=== PATIENT | male | born 1960 | race Caucasian/White ===

== ENCOUNTER 2017-11-24 19:18 | Emergency (ER) | payer MEDICARE ==
[~2017-11-24] VITALS: Ht 182.9 cm; Wt 59.0 kg
[~2017-11-24 19:18] MED LIST: ADULT LOW DOSE81 MG PO; ALPRAZOLAM 0.50.5 M1 PO; ASPIR 8181 MG PO; BACTRIM DS TAB1 EACH PO; CEFUROXIME250 MG PO; CEFUROXIME500 MG PO; MUCINEX600 MG PO; NORCO 5-325 TA1 EACH PO; PENICILLIN V P500 MG PO; VENTOLIN HFA 1818 GM INH; ZOCOR20 MG PO; ZYVOX600 MG PO
[2017-11-24 19:52] LABS: ABSOLUTE EOSINOPHILS 0.2 thou/uL (0.0-0.7); ABSOLUTE LYMPHOCYTES 1.7 thou/uL (0.8-5.3); ABSOLUTE MONOCYTES 0.7 thou/uL (0.0-1.2); ABSOLUTE NEUTROPHILS 6.7 thou/uL (1.6-8.1); BASOPHILS 0.5 %; EOSINOPHILS 1.9 %; HEMATOCRIT 44.3 % (42.0-52.0); LYMPHOCYTES 18.5 %; MCH 31.2 pg (26.0-34.0); MCHC 33.8 g/dL (28.0-37.0); MCV 92.5 fL (80.0-100.0); MONOCYTES 7.2 %; MPV 9.1 fl. (7.2-11.1); NUCLEATED RBCS 0 /100WBC; PLATELET COUNT* 261 thou/uL (150-400); POLYS 71.9 %; RBC 4.79 mil/uL (4.50-6.00); RDW-CV 13.4 % (10.5-14.5); WBC 9.3 thou/uL (4.0-11.0)
[2017-11-24 19:56] LABS: CALCIUM 8.4 mg/dL (8.5-10.1); CREATININE 0.7 mg/dL (0.6-1.3); POTASSIUM 3.5 mmol/L (3.5-5.1)
[2017-11-24 20:01] LABS: ALBUMIN 3.9 g/dL (3.4-5.0); TOTAL BILIRUBIN 0.3 mg/dL (<0.1-1.0)
[2017-11-24 20:02] LABS: URINE BILIRUBIN NEGATIVE (Negative); URINE BLOOD 3+ (Negative); URINE CLARITY CLEAR; URINE COLOR YELLOW; URINE GLUCOSE-RANDOM NEGATIVE (Negative); URINE KETONES NEGATIVE (Negative); URINE PROTEIN TRACE (Negative); URINE UROBILINOGEN 0.2 E.U./dl (0.2-1.0)
[2017-11-24 20:10] LABS: URINE LEUKOCYTES-REFLEX 3+ (Negative); URINE NITRITE-REFLEX POSITIVE (Negative)
[2017-11-24 20:13] LABS: SQUAMOUS 0-3 Few /LPF (0-3)
[2017-11-24 20:14] LABS: CASTS None Seen /LPF (None Seen); CRYSTALS None Seen /LPF (None Seen); URINE WBC-REFLEX >25 Many /HPF (0-5)
[2017-11-24] MEDS ORDERED: AUGMENTIN 875-1 EACH PO (20:39)
[2017-11-24] MEDS ORDERED: ZOFRAN ODT4 MG PO (20:39)
[2017-11-24] MEDS ORDERED: ACETAMINOPHEN-1 EAC1 PO (20:39)
[2017-11-24 21:39] VITALS: BP 148/81
== END 2017-11-24 21:41 | disposition home or self-care (01) ==
LOC: M.ERS 19:18
PROVIDERS: Emergency Medicine
DX: N39.0 Urinary tract infection, site not specified (principal); J44.9 Chronic obstructive pulmonary disease, unspecified; F17.210 Nicotine dependence, cigarettes, uncomplicated

== ENCOUNTER 2018-04-03 16:17 | Emergency (ER) | payer MEDICARE ==
[~2018-04-03] VITALS: Ht 182.9 cm; Wt 62.6 kg
[~2018-04-03 16:17] MED LIST changes: +ACETAMINOPHEN-1 EAC1 PO; +AUGMENTIN 875-1 EACH PO; +ZOFRAN ODT4 MG PO
[2018-04-03 17:36] LABS: URINE BILIRUBIN NEGATIVE (Negative); URINE BLOOD 3+ (Negative); URINE COLOR YELLOW; URINE GLUCOSE-RANDOM NEGATIVE (Negative); URINE KETONES NEGATIVE (Negative); URINE PROTEIN 2+ (Negative); URINE SPECIFIC GRAVITY >= 1.030 (1.005-1.030)
[2018-04-03 17:37] LABS: URINE CLARITY CLOUDY; URINE LEUKOCYTES-REFLEX 2+ (Negative); URINE NITRITE-REFLEX POSITIVE (Negative)
[2018-04-03 17:45] LABS: SQUAMOUS NONE SEEN /LPF (0-3)
[2018-04-03 17:46] LABS: BACTERIA-REFLEX >30 Many /HPF (None Seen); CASTS None Seen /LPF (None Seen); CRYSTALS None Seen /LPF (None Seen); URINE RBC >20 Many /HPF (0-2); URINE WBC-REFLEX >25 Many /HPF (0-5)
[2018-04-03] MEDS ORDERED: AUGMENTIN 875-1 EACH PO (17:52)
[2018-04-03] MEDS ORDERED: ACETAMINOPHEN-1 EAC1 PO (18:01)
[2018-04-03] MEDS ORDERED: PYRIDIUM200 M2 PO (18:02)
[2018-04-03 18:04] VITALS: BP 136/58
== END 2018-04-03 18:06 | disposition home or self-care (01) ==
LOC: M.ERS 16:17
PROVIDERS: Nurse Practitioner Family
DX: N39.0 Urinary tract infection, site not specified (principal); J44.9 Chronic obstructive pulmonary disease, unspecified; F17.210 Nicotine dependence, cigarettes, uncomplicated

== ENCOUNTER 2018-10-05 21:30 | Emergency (ER) | payer MEDICARE ==
[~2018-10-05] VITALS: Ht 182.9 cm; Wt 63.5 kg
[~2018-10-05 21:30] MED LIST changes: +PYRIDIUM200 M2 PO
[2018-10-05 22:00] LABS: URINE BILIRUBIN NEGATIVE (Negative); URINE BLOOD TRACE (Negative); URINE CLARITY CLEAR; URINE COLOR YELLOW; URINE GLUCOSE-RANDOM NEGATIVE (Negative); URINE KETONES NEGATIVE (Negative); URINE PROTEIN 1+ (Negative)
[2018-10-05 22:02] LABS: ABSOLUTE EOSINOPHILS 0.1 thou/uL (0.0-0.7); ABSOLUTE MONOCYTES 0.6 thou/uL (0.0-1.2); ABSOLUTE NEUTROPHILS 8.6 thou/uL (1.6-8.1); BASOPHILS 0.4 %; EOSINOPHILS 0.7 %; HEMATOCRIT 38.7 % (42.0-52.0); HEMOGLOBIN 13.4 gm/dL (14.0-18.0); LYMPHOCYTES 9.8 %; MCH 31.2 pg (26.0-34.0); MCHC 34.5 g/dL (28.0-37.0); MCV 90.5 fL (80.0-100.0); NUCLEATED RBCS 0 /100WBC; PLATELET COUNT* 206 thou/uL (150-400); POLYS 83.1 %; RBC 4.28 mil/uL (4.50-6.00); RDW-CV 13.5 % (10.5-14.5); WBC 10.3 thou/uL (4.0-11.0)
[2018-10-05 22:06] LABS: CASTS None Seen /LPF (None Seen); CRYSTALS None Seen /LPF (None Seen); SQUAMOUS 0-3 Few /LPF (0-3); URINE LEUKOCYTES-REFLEX 2+ (Negative); URINE NITRITE-REFLEX POSITIVE (Negative); URINE RBC 0-2 Rare /HPF (0-2); URINE WBC-REFLEX 6-15 Few /HPF (0-5)
[2018-10-05 22:13] LABS: CALCIUM 9.3 mg/dL (8.5-10.1); CREATININE 0.9 mg/dL (0.6-1.3); POTASSIUM 3.8 mmol/L (3.5-5.1)
[2018-10-05 22:17] LABS: ALBUMIN 3.7 g/dL (3.4-5.0); TOTAL BILIRUBIN 0.3 mg/dL (<0.1-1.0); TOTAL PROTEIN 6.5 g/dL (6.4-8.2)
[2018-10-05] MEDS ORDERED: CIPROFLOXACIN500 M1 PO (22:56)
[2018-10-05 23:09] VITALS: BP 111/52
== END 2018-10-05 23:11 | disposition home or self-care (01) ==
LOC: M.ERS 21:30
PROVIDERS: Family Medicine
DX: S00.83XA Contusion of other part of head, initial encounter (principal); N39.0 Urinary tract infection, site not specified; F17.210 Nicotine dependence, cigarettes, uncomplicated; J44.9 Chronic obstructive pulmonary disease, unspecified; W11.XXXA Fall on and from ladder, initial encounter; Y92.89 Other specified places as the place of occurrence of the external cause; Y93.89 Activity, other specified; Y99.8 Other external cause status

== ENCOUNTER 2020-01-18 14:52 | Emergency (ER) | payer MEDICARE ==
[~2020-01-18] VITALS: Ht 185.4 cm; Wt 63.5 kg
[~2020-01-18 14:52] MED LIST changes: +CIPROFLOXACIN500 M1 PO
[2020-01-18 15:32] LABS: URINE BILIRUBIN NEGATIVE (Negative); URINE BLOOD 3+ (Negative); URINE CLARITY CLEAR; URINE COLOR YELLOW; URINE GLUCOSE-RANDOM NEGATIVE (Negative); URINE KETONES NEGATIVE (Negative); URINE LEUKOCYTES-REFLEX 1+ (Negative); URINE PROTEIN 2+ (Negative); URINE SPECIFIC GRAVITY 1.025 (1.005-1.030)
[2020-01-18 15:36] LABS: URINE NITRITE-REFLEX POSITIVE (Negative)
[2020-01-18 15:42] LABS: BACTERIA-REFLEX >30 Many /HPF (None Seen); CASTS None Seen /LPF (None Seen); CRYSTALS None Seen /LPF (None Seen); SQUAMOUS 0-3 Few /LPF (0-3); URINE RBC 3-10 Few /HPF (0-2); URINE WBC-REFLEX >25 Many /HPF (0-5)
[2020-01-18 16:02] LABS: ABSOLUTE BASOPHILS 0.1 thou/uL (0.0-0.2); ABSOLUTE EOSINOPHILS 0.2 thou/uL (0.0-0.7); ABSOLUTE LYMPHOCYTES 1.2 thou/uL (0.8-5.3); ABSOLUTE MONOCYTES 0.6 thou/uL (0.0-1.2); ABSOLUTE NEUTROPHILS 8.6 thou/uL (1.6-8.1); BASOPHILS 0.6 %; EOSINOPHILS 1.4 %; HEMATOCRIT 43.3 % (42.0-52.0); HEMOGLOBIN 15.1 gm/dL (14.0-18.0); LYMPHOCYTES 10.9 %; MCH 32.3 pg (26.0-34.0); MCHC 34.8 g/dL (28.0-37.0); MCV 92.9 fL (80.0-100.0); MONOCYTES 5.7 %; MPV 8.9 fl. (7.2-11.1); NUCLEATED RBCS 0 /100WBC; PLATELET COUNT* 221 thou/uL (150-400); POLYS 81.4 %; RBC 4.66 mil/uL (4.50-6.00); RDW-CV 13.3 % (10.5-14.5); WBC 10.6 thou/uL (4.0-11.0)
[2020-01-18 16:10] LABS: POTASSIUM 3.9 mmol/L (3.5-5.1)
[2020-01-18 16:19] LABS: ALBUMIN 3.9 g/dL (3.4-5.0); TOTAL BILIRUBIN 0.3 mg/dL (<0.1-1.0)
[2020-01-18] MEDS ORDERED: NORCO 5-325 TA1 EAC2 PO (17:34)
[2020-01-18] MEDS ORDERED: IBUPROFEN 800800 M1 PO (17:34)
[2020-01-18] MEDS ORDERED: CIPRO500 M1 PO (17:34)
[2020-01-18 17:55] VITALS: BP 120/70
--- NOTE | 2020-01-19 14:00 | EKG ---
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: Ronak Camargo : 1960 Requested By: Suma Zamudio Order Number: [id number] MD: Max Cardona Measurements Intervals [place] Rate: 68 P: 74 IN: 142 QRS: 89 QRSD: 96 T: 61 QT: 392 QTc: 417 Interpretive Statements Sinus rhythm Borderline right axis deviation Borderline ST elevation, anterior leads, probably normal variant Baseline wander in lead(s) V2 Compared to ECG 03/02/2017 09:09:39 ST (T wave) deviation now present Electronically Signed On 01-19-2020 14:00:29 CDT by Max Cardona [email or web address] <ELECTRONICALLY SIGNED> By: Max Cardona MD, FACC 01/19/20 1400 1557 1557 Max Cardona MD, FACC /EPI
== END 2020-01-18 17:55 | disposition home or self-care (01) ==
LOC: M.ERS 14:52
PROVIDERS: Emergency Medicine Emergency Medical Services; Nurse Practitioner Family
DX: N39.0 Urinary tract infection, site not specified (principal); R06.00 Dyspnea, unspecified; R07.89 Other chest pain; J44.9 Chronic obstructive pulmonary disease, unspecified; F17.210 Nicotine dependence, cigarettes, uncomplicated

== ENCOUNTER 2020-03-24 16:07 | Inpatient (IN) | payer MEDICARE ==
[~2020-03-24] VITALS: Ht 185.4 cm; Wt 62.6 kg
[~2020-03-24 16:07] MED LIST changes: +CIPRO500 M1 PO; +IBUPROFEN 800800 M1 PO; +NORCO 5-325 TA1 EAC2 PO
[2020-03-24 16:14] VITALS: BP 129/78
[2020-03-24 16:32] LABS: URINE BILIRUBIN NEGATIVE (Negative); URINE BLOOD NEGATIVE (Negative); URINE CLARITY SL CLOUDY; URINE COLOR YELLOW; URINE GLUCOSE-RANDOM NEGATIVE (Negative); URINE KETONES NEGATIVE (Negative); URINE LEUKOCYTES-REFLEX 2+ (Negative); URINE NITRITE-REFLEX POSITIVE (Negative); URINE PROTEIN 1+ (Negative); URINE SPECIFIC GRAVITY 1.025 (1.005-1.030); URINE UROBILINOGEN 0.2 E.U./dl (0.2-1.0)
--- NOTE | 2020-03-24 16:32 | NUR ---
THIS RN WALKED IN TO PT'S ROOM TO OBTAIN URINE SAMPLE FROM PT. RN FOUND PT ON FLOOR IN THE POSITION. PT WAS SHAKING BUT WAS ALERT. PT WAS HELPED BACK TO BED WITH 2 RN ASSISTANCE. 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 PT REPORTS NOT KNOWING HOW HE ENDED UP LAYING DOWN ON FLOOR BUT DOES ENDORSE MILD DIZZINESS. PT UNSURE IF HIT HEAD BUT DID NOT LOSE CONSCIOUSNESS. PT DID NOT APPEAR TO HAVE HIT HEAD. RELL NURSE PRACTITIONER, PT'S PROVIDER, NOTIFIED IMMEDIATELY OF INCIDENT AND CAME TO EVALUATE PT.
[2020-03-24 16:39] LABS: BACTERIA-REFLEX >30 Many /HPF (None Seen); MUCUS 0-3 Light strn/LPF (None Seen); SQUAMOUS 0-3 Few /LPF (0-3)
[2020-03-24 16:40] LABS: CASTS None Seen /LPF (None Seen); CRYSTALS None Seen /LPF (None Seen); URINE RBC None Seen /HPF (0-2)
[2020-03-24 17:04] LABS: ABSOLUTE EOSINOPHILS 0.1 thou/uL (0.0-0.7); ABSOLUTE LYMPHOCYTES 0.9 thou/uL (0.8-5.3); ABSOLUTE MONOCYTES 0.6 thou/uL (0.0-1.2); ABSOLUTE NEUTROPHILS 8.3 thou/uL (1.6-8.1); BASOPHILS 0.4 %; EOSINOPHILS 0.5 %; HEMATOCRIT 43.3 % (42.0-52.0); HEMOGLOBIN 14.7 gm/dL (14.0-18.0); LYMPHOCYTES 9.4 %; MCH 31.1 pg (26.0-34.0); MCHC 33.9 g/dL (28.0-37.0); MCV 91.7 fL (80.0-100.0); MONOCYTES 6.2 %; MPV 9.2 fl. (7.2-11.1); NUCLEATED RBCS 0 /100WBC; PLATELET COUNT* 209 thou/uL (150-400); POLYS 83.5 %; RBC 4.72 mil/uL (4.50-6.00); WBC 9.9 thou/uL (4.0-11.0)
[2020-03-24 17:14] LABS: AMP/METHAMP Negative (Negative); BARBITURATES Negative (Negative); BENZODIAZEPINES Negative (Negative); COCAINE Negative (Negative); METHADONE Negative (Negative); OPIATES POSITIVE (Negative); PCP Negative (Negative); THC POSITIVE (Negative)
[2020-03-24 17:14] LABS: POTASSIUM 3.7 mmol/L (3.5-5.1)
[2020-03-24 17:19] LABS: TOTAL BILIRUBIN 0.4 mg/dL (<0.1-1.0); TOTAL PROTEIN 7.2 g/dL (6.4-8.2)
[2020-03-24 17:24] LABS: ACETAMINOPHEN < 2 ug/mL (10-30); ALCOHOL < 10 mg/dL (<10)
[2020-03-24 22:04] VITALS: BP 126/67
[2020-03-24 23:30] VITALS: BP 137/67
[2020-03-25] VITALS: BP 89/40
[2020-03-25 07:30] VITALS: BP 113/56
[2020-03-25 09:39] LABS: CALCIUM 8.1 mg/dL (8.5-10.1); CREATININE 0.8 mg/dL (0.6-1.3)
[2020-03-25 09:43] LABS: ALBUMIN 3.4 g/dL (3.4-5.0); MAGNESIUM 1.8 mg/dL (1.8-2.4); PHOSPHORUS* 2.7 mg/dL (2.5-4.9); TOTAL BILIRUBIN 0.4 mg/dL (<0.1-1.0); TOTAL PROTEIN 6.1 g/dL (6.4-8.2)
--- NOTE | 2020-03-25 11:19 | NUR ---
CM SPOKE TO THE PT TO DISCUSS HIS HOME SITUATION, DISCHARGE PLANNING, AND TO INFORM OF THE ROLE OF CM. PT A&O, INDEPNDENT WITH ADL'S AND DRIVES. PT RESIDES AT HOME WITH DTR AND SHE ASSIST HIM WITH HIS CATH CARE NEEDED HE INFORMS THAT 'SHE IS A MED TECH'. PT USES 0 DME. PT HAS 0 HX OF HH OR SNF. CM WILL REMAIN AVAILABLE TO ASSIST WITH D/C PLANNING NEEDED.
[2020-03-25 12:00] VITALS: BP 125/63
--- NOTE | 2020-03-25 12:24 | NUR ---
Nutrition: Pt admitted with syncope, UTI. Catheter for recurrent UTIs. BMI 18.2. Pt stated he used to weigh 160# in adulthood, but lost wt when he got his catheter. He weighs in the 130s now. He stated he had been eating fine MOVIE EXTRA. REgular diet. BG 120, alb 3.4. He has had Ensure before and he agreed to 2 a day for wt maintenance - RD will order. Mild nutrition risk. GOALS: >75% intake of meals/supplements, no wt loss from 135#.
[2020-03-25 16:00] VITALS: BP 113/73
--- NOTE | 2020-03-25 17:54 | EKG ---
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
[2020-03-25 19:30] VITALS: BP 118/67
[2020-03-26 00:28] VITALS: BP 134/67
[2020-03-26 04:40] VITALS: BP 133/55
[2020-03-26 04:40] LABS: HEMATOCRIT 38.5 % (42.0-52.0); HEMOGLOBIN 13.1 gm/dL (14.0-18.0); MCH 31.2 pg (26.0-34.0); MCV 91.8 fL (80.0-100.0); MPV 9.6 fl. (7.2-11.1); RBC 4.19 mil/uL (4.50-6.00); WBC 5.7 thou/uL (4.0-11.0)
[2020-03-26 05:11] LABS: CALCIUM 7.9 mg/dL (8.5-10.1); CREATININE 0.9 mg/dL (0.6-1.3); MAGNESIUM 1.9 mg/dL (1.8-2.4); POTASSIUM 3.9 mmol/L (3.5-5.1)
[2020-03-26 07:22] VITALS: BP 116/62
[2020-03-26 11:06] VITALS: BP 112/54; BP 12/54
--- NOTE | 2020-03-26 11:13 | NUR ---
CM INFORMED DURING PRIME ROUNDING OF THE PLAN OF CARE FOR THE PT INCLUDING PLAN FOR PT TO CONTINUE I.V. ABT'S, PENDING LABS, AND PLAN TO POSSIBILY D/C PT HOME TOMORROW. NO D/C PLANNING NEEDS ANTICIPATED. CM WILL REMAIN AVAILABLE TO ASSIST AND FOLLOW.
[2020-03-26 16:00] VITALS: BP 117/62
[2020-03-27 00:22] VITALS: BP 113/37
[2020-03-27 04:35] VITALS: BP 116/66
[2020-03-27 05:38] LABS: HEMATOCRIT 39.2 % (42.0-52.0); HEMOGLOBIN 13.5 gm/dL (14.0-18.0); MCH 31.5 pg (26.0-34.0); MCHC 34.5 g/dL (28.0-37.0); MCV 91.2 fL (80.0-100.0); MPV 9.1 fl. (7.2-11.1); RBC 4.3 mil/uL (4.50-6.00); RDW-CV 13.1 % (10.5-14.5); WBC 6.1 thou/uL (4.0-11.0)
[2020-03-27 05:42] LABS: CALCIUM 8.5 mg/dL (8.5-10.1); CREATININE 0.9 mg/dL (0.6-1.3); MAGNESIUM 1.8 mg/dL (1.8-2.4); POTASSIUM 3.6 mmol/L (3.5-5.1)
[2020-03-27 08:04] VITALS: BP 111/61
--- NOTE | 2020-03-27 09:07 | NUR ---
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, TRACING SR- UPON ASSESSMENT PT NOTED TO BE RESTING IN BED IN BED- PT A&O X4- CONT OF BOWEL, SUPRAPUBIC CATH IN PLACE R/T NEUROGENIC BLADDER, DD CLEAR YELLOW URINE- UP AD-RODRIGUEZ IN ROOM STEADY GAIT NOTED- DIMINISHED LUNG SOUNDS, NON-PRODUCTIVE COUGH REPORTED- VSS, O2 SAT 94% ON RA- ABD SOFT/ROUND/NON-TENDER, BS X4 QUADS- LAST BM REPORTED 03/26/20- IV NOTED TO LEFT AC INTACT AND SL, IV ABT GIVEN THIS AM PRESCRIBED- GOOD PO INTAKE NOTED THIS AM WITH BREAKFAST- PT REPORTS KIDNEY PAIN TO BE IMPROVED THIS AM- CALL LIGHT AND PESONAL BELONGINGS WITH IN REACH- PT MAKES NEEDS KNOWN- ALL NEEDS MET AT THIS TIME-WCTM
[2020-03-27] MEDS ORDERED: AMOX TR-K CLV1 EAC3 PO (09:39)
[2020-03-27] MEDS ORDERED: LACTOBACILLUS1 EACH PO (09:39)
[2020-03-27] MEDS ORDERED: PHENAZOPYRIDIN100 M1 PO (09:39)
[2020-03-27] MEDS ORDERED: ACETAMINOPHEN-1 EACH PO (09:45)
[2020-03-27 11:24] VITALS: BP 111/61
[2020-03-27 11:44] VITALS: BP 111/61
== END 2020-03-27 11:43 | disposition home or self-care (01) | DRG 698 ==
LOC: M.ERS 16:07 → M.TBA-ER 19:21 → M.2W 19:21
PROVIDERS: Nurse Practitioner Family; ADMIT Internal Medicine; ATTEND Internal Medicine
DX: T83.518A Infection and inflammatory reaction due to other urinary catheter, initial encounter (principal); A41.81 Sepsis due to Enterococcus; G92 Toxic encephalopathy; N30.00 Acute cystitis without hematuria; B95.2 Enterococcus as the cause of diseases classified elsewhere; N31.2 Flaccid neuropathic bladder, not elsewhere classified; I95.9 Hypotension, unspecified; Y83.8 Other surgical procedures as the cause of abnormal reaction of the patient, or of later complication, without mention of misadventure at the time of the procedure; E86.9 Volume depletion, unspecified; J44.9 Chronic obstructive pulmonary disease, unspecified; F17.210 Nicotine dependence, cigarettes, uncomplicated; Z20.828 Contact with and (suspected) exposure to other viral communicable diseases; Y92.89 Other specified places as the place of occurrence of the external cause; Z79.899 Other long term (current) drug therapy

== ENCOUNTER 2020-09-19 17:15 | Emergency (ER) | payer MEDICARE ==
[~2020-09-19] VITALS: Ht 185.4 cm; Wt 63.5 kg
[~2020-09-19 17:15] MED LIST changes: +ACETAMINOPHEN-1 EACH PO; +AMOX TR-K CLV1 EAC3 PO; +LACTOBACILLUS1 EACH PO; +PHENAZOPYRIDIN100 M1 PO
[2020-09-19 17:46] LABS: ABSOLUTE BASOPHILS 0.1 thou/uL (0.0-0.2); ABSOLUTE EOSINOPHILS 0.1 thou/uL (0.0-0.7); ABSOLUTE LYMPHOCYTES 1.5 thou/uL (0.8-5.3); ABSOLUTE MONOCYTES 0.8 thou/uL (0.0-1.2); ABSOLUTE NEUTROPHILS 7.4 thou/uL (1.6-8.1); BASOPHILS 0.8 %; EOSINOPHILS 1.5 %; HEMATOCRIT 47.4 % (42.0-52.0); HEMOGLOBIN 15.9 gm/dL (14.0-18.0); LYMPHOCYTES 15.1 %; MCH 30.7 pg (26.0-34.0); MCHC 33.6 g/dL (28.0-37.0); MCV 91.4 fL (80.0-100.0); MONOCYTES 7.7 %; MPV 8.9 fl. (7.2-11.1); NUCLEATED RBCS 0 /100WBC; PLATELET COUNT* 253 thou/uL (150-400); POLYS 74.9 %; RBC 5.19 mil/uL (4.50-6.00); RDW-CV 13.7 % (10.5-14.5); WBC 9.9 thou/uL (4.0-11.0)
[2020-09-19 17:55] LABS: URINE BILIRUBIN NEGATIVE (Negative); URINE BLOOD NEGATIVE (Negative); URINE CLARITY SL CLOUDY; URINE COLOR YELLOW; URINE GLUCOSE-RANDOM NEGATIVE (Negative); URINE KETONES NEGATIVE (Negative); URINE PROTEIN TRACE (Negative); URINE SPECIFIC GRAVITY 1.025 (1.005-1.030); URINE UROBILINOGEN 0.2 E.U./dl (0.2-1.0)
[2020-09-19 17:58] LABS: URINE LEUKOCYTES-REFLEX 2+ (Negative); URINE NITRITE-REFLEX POSITIVE (Negative)
[2020-09-19 18:02] LABS: BACTERIA-REFLEX >30 Many /HPF (None Seen); SQUAMOUS 4-10 Moderate /LPF (0-3); URINE RBC 0-2 Rare /HPF (0-2); URINE WBC-REFLEX >25 Many /HPF (0-5); WBC CLUMPS Few (None Seen)
[2020-09-19 18:03] LABS: CASTS None Seen /LPF (None Seen); CRYSTALS None Seen /LPF (None Seen)
[2020-09-19 18:04] LABS: MUCUS 0-3 Light strn/LPF (None Seen)
[2020-09-19 18:31] LABS: CALCIUM 9.5 mg/dL (8.5-10.1); CREATININE 0.9 mg/dL (0.6-1.3); POTASSIUM 3.8 mmol/L (3.5-5.1)
[2020-09-19 18:42] LABS: ALBUMIN 4.1 g/dL (3.4-5.0); TOTAL BILIRUBIN 0.3 mg/dL (<0.1-1.0); TOTAL PROTEIN 7.6 g/dL (6.4-8.2)
[2020-09-19] MEDS ORDERED: CEFDINIR300 MG PO (18:55)
[2020-09-19] MEDS ORDERED: VENTOLIN HFA 1818 GM INH (18:55)
[2020-09-19] MEDS ORDERED: MEDROLDOSEPACK PO (18:55)
[2020-09-19] MEDS ORDERED: TESSALON PERLE100 MG PO (18:55)
[2020-09-19 19:12] VITALS: BP 121/61
--- NOTE | 2020-09-23 10:28 | EKG ---
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: [facility] : 1960 Requested By: Suma Zamudio Order Number: [id number] MD: Sanchez Collins Measurements Intervals [place] Rate: 63 P: 70 ME: 139 QRS: 97 QRSD: 102 T: 41 QT: 404 QTc: 414 Interpretive Statements Sinus rhythm Right axis deviation Compared to ECG 03/24/2020 16:27:08 No significant changes Electronically Signed On 09-23-2020 10:28:11 CDT by Sanchez Collins [email or web address] <ELECTRONICALLY SIGNED> By: Sanchez Collins MD, [facility] 09/23/20 1028 1736 173 Sanchez Collins MD, [facility] /EPI
== END 2020-09-19 19:13 | disposition home or self-care (01) ==
LOC: M.ERS 17:15
PROVIDERS: Nurse Practitioner Family
DX: J44.1 Chronic obstructive pulmonary disease with (acute) exacerbation (principal); N39.0 Urinary tract infection, site not specified; Z20.822 Contact with and (suspected) exposure to COVID-19; F17.210 Nicotine dependence, cigarettes, uncomplicated; Z87.440 Personal history of urinary (tract) infections

== ENCOUNTER 2020-11-09 16:48 | Emergency (ER) | payer MEDICARE ==
[~2020-11-09] VITALS: Ht 185.4 cm; Wt 65.8 kg
[~2020-11-09 16:48] MED LIST changes: +CEFDINIR300 MG PO; +MEDROLDOSEPACK PO; +TESSALON PERLE100 MG PO
[2020-11-09 17:33] LABS: URINE BILIRUBIN NEGATIVE (Negative); URINE BLOOD 3+ (Negative); URINE CLARITY SL CLOUDY; URINE COLOR YELLOW; URINE GLUCOSE-RANDOM NEGATIVE (Negative); URINE KETONES TRACE (Negative); URINE LEUKOCYTES-REFLEX 1+ (Negative); URINE PROTEIN 3+ (Negative); URINE SPECIFIC GRAVITY >= 1.030 (1.005-1.030)
[2020-11-09 17:38] LABS: URINE NITRITE-REFLEX POSITIVE (Negative)
[2020-11-09 17:40] LABS: ABSOLUTE BASOPHILS 0.1 thou/uL (0.0-0.2); ABSOLUTE EOSINOPHILS 0.2 thou/uL (0.0-0.7); ABSOLUTE LYMPHOCYTES 1.4 thou/uL (0.8-5.3); ABSOLUTE MONOCYTES 0.6 thou/uL (0.0-1.2); ABSOLUTE NEUTROPHILS 5.5 thou/uL (1.6-8.1); EOSINOPHILS 2.1 %; HEMATOCRIT 41.3 % (42.0-52.0); HEMOGLOBIN 14.1 gm/dL (14.0-18.0); LYMPHOCYTES 18.2 %; MCH 31.2 pg (26.0-34.0); MCHC 34.1 g/dL (28.0-37.0); MCV 91.4 fL (80.0-100.0); MONOCYTES 7.7 %; MPV 9.2 fl. (7.2-11.1); NUCLEATED RBCS 0 /100WBC; PLATELET COUNT* 208 thou/uL (150-400); RBC 4.52 mil/uL (4.50-6.00); RDW-CV 13.1 % (10.5-14.5); WBC 7.7 thou/uL (4.0-11.0)
[2020-11-09 17:46] LABS: MUCUS 4-6 Moderate strn/LPF (None Seen)
[2020-11-09 17:47] LABS: CALCIUM 8.9 mg/dL (8.5-10.1); POTASSIUM 4.2 mmol/L (3.5-5.1)
[2020-11-09 17:47] LABS: URINE RBC >20 Many /HPF (0-2); URINE WBC-REFLEX >25 Many /HPF (0-5)
[2020-11-09 17:49] LABS: BACTERIA-REFLEX >30 Many /HPF (None Seen); SQUAMOUS 0-3 Few /LPF (0-3)
[2020-11-09 17:50] LABS: CRYSTALS None Seen /LPF (None Seen)
[2020-11-09 17:51] LABS: CASTS None Seen /LPF (None Seen)
[2020-11-09 17:52] LABS: ALBUMIN 3.8 g/dL (3.4-5.0); TOTAL BILIRUBIN 0.1 mg/dL (<0.1-1.0); TOTAL PROTEIN 6.7 g/dL (6.4-8.2)
[2020-11-09] MEDS ORDERED: CEPHALEXIN500 MG PO ×2 (18:50→18:51)
[2020-11-09] MEDS ORDERED: NORCO5 PO ×2 (18:50→19:53)
[2020-11-09 20:17] VITALS: BP 137/83
== END 2020-11-09 20:20 | disposition home or self-care (01) ==
LOC: M.ERS 16:48
PROVIDERS: Physician Assistant
DX: N39.0 Urinary tract infection, site not specified (principal); J44.9 Chronic obstructive pulmonary disease, unspecified; F17.210 Nicotine dependence, cigarettes, uncomplicated

== ENCOUNTER 2021-07-26 13:59 | Emergency (ER) | payer MEDICARE ==
[~2021-07-26] VITALS: Ht 185.4 cm; Wt 63.5 kg
[~2021-07-26 13:59] MED LIST changes: +CEPHALEXIN500 MG PO; +NORCO5 PO
[2021-07-26 14:48] LABS: URINE BILIRUBIN NEGATIVE (Negative); URINE BLOOD 3+ (Negative); URINE CLARITY CLEAR; URINE COLOR YELLOW; URINE GLUCOSE-RANDOM NEGATIVE (Negative); URINE KETONES NEGATIVE (Negative); URINE PROTEIN NEGATIVE (Negative); URINE UROBILINOGEN 0.2 E.U./dl (0.2-1.0)
[2021-07-26 14:49] LABS: URINE LEUKOCYTES-REFLEX 2+ (Negative); URINE NITRITE-REFLEX POSITIVE (Negative)
[2021-07-26 14:56] LABS: SQUAMOUS 4-10 Moderate /LPF (0-3)
[2021-07-26 14:57] LABS: BACTERIA-REFLEX 1-9 Few /HPF (None Seen); CASTS None Seen /LPF (None Seen); CRYSTALS None Seen /LPF (None Seen); URINE WBC-REFLEX 6-15 Few /HPF (0-5)
[2021-07-26] MEDS ORDERED: CEFUROXIME500 MG PO (15:07)
[2021-07-26] MEDS ORDERED: APAP W/CODEINE1 TA2 PO (15:11)
[2021-07-26 15:28] VITALS: BP 120/75
== END 2021-07-26 15:28 | disposition home or self-care (01) ==
LOC: M.ERS 13:59
PROVIDERS: Physician Assistant
DX: N39.0 Urinary tract infection, site not specified (principal); J44.9 Chronic obstructive pulmonary disease, unspecified; F17.210 Nicotine dependence, cigarettes, uncomplicated; Z98.890 Other specified postprocedural states